=== PATIENT | male | born 1985 | race Caucasian/White ===

== ENCOUNTER 2019-03-21 13:55 | Emergency (ER) | payer MEDICAID ==
[~2019-03-21] VITALS: Ht 170.2 cm; Wt 90.0 kg
[~2019-03-21 13:55] MED LIST: ACYC800T5 PO; IBUP800T48 PO; NO MEDS
[2019-03-21] MEDS ORDERED: KETOROLAC 60 MG INJ IM STA (15:27)
[2019-03-21] MEDS ORDERED: DIPHTH/TET/ACEL PERTUSS (ADULT) 0.5 ML VIAL IM* ONE (15:30)
[2019-03-21 15:33] VITALS: BP 130/78; PULSE 89; RESP 18; Ht 170.2 cm; Wt 90.0 kg
== END 2019-03-21 16:06 | disposition home or self-care (01) ==
LOC: FTE 13:55
DX: S60.221A Contusion of right hand, initial encounter (principal); W22.8XXA Striking against or struck by other objects, initial encounter; Y92.89 Other specified places as the place of occurrence of the external cause; Z23 Encounter for immunization
CPT/HCPCS: 73130; 90715; J1885; 90471; 96372